=== PATIENT | male | born 1965 | race Asian ===

== ENCOUNTER 2022-12-30 09:30 | Emergency (ER) | payer BC ==
[~2022-12-30] VITALS: Ht 170.2 cm; Wt 61.7 kg
[2022-12-30 09:35] VITALS: BP 132/79
--- NOTE | 2022-12-30 10:05 | NUR ---
pt in room 4, nad, already seen by , sr on cm, o2 sat 98% ra, sr up times 2
[2022-12-30 10:07] LABS: BASOPHILS # (AUTO) 0.1 K/uL (0.00-0.22); EOSINOPHILS # (AUTO) 0.1 K/uL (0-0.4); HEMATOCRIT 41.8 % (36-52); HEMOGLOBIN 13.9 g/dL (12.0-18.0); LYMPHOCYTES # (AUTO) 2.4 K/uL (2.0-11.5); LYMPHOCYTES % (AUTO) 45.4 % (20.5-51.1); MEAN CORPUSCULAR HEMOGLOBIN 29 pg (27-31); MEAN CORPUSCULAR HGB CONC 33 g/dL (33-37); MEAN CORPUSCULAR VOLUME 86.3 fL (80-94); MONOCYTES # (AUTO) 0.4 K/uL (0.8-1.0); MONOCYTES % (AUTO) 7.8 % (1.7-9.3); NEUTROPHILS # (AUTO) 2.4 K/uL (1.8-7.7); NEUTROPHILS % (AUTO) 44.8 % (42.2-75.2); PLATELET COUNT (AUTO) 214 K/uL (140-450); RED BLOOD CELL COUNT(AUTO) 4.84 MIL/uL (4.20-6.10); WHITE BLOOD COUNT (AUTO) 5.3 K/uL (4.8-10.8)
[2022-12-30 10:20] LABS: ALBUMIN 4.2 g/dL (3.4-5.0); ANION GAP 13.2 (8-16); ASPARTATE AMINOTRANSFERASE 26 U/L (15-37); CARBON DIOXIDE 26.8 mmol/L (21-32); CHLORIDE 102 mmol/L (98-107); CREATININE 0.8 mg/dL (0.6-1.3); GFR ARICAN-AMERICAN 127 mL/min (>90); GLUCOSE 124 mg/dL (74-106); SODIUM SERUM 138 mmol/L (136-145); TOTAL BILIRUBIN 0.8 mg/dL (0.0-1.0); UREA NITROGEN, BLOOD 19 mg/dL (7-18)
[2022-12-30] MEDS ORDERED: ALUMINUM HYD/MAG/SIMETHICONE 30 ML UDC PO ONE (11:20)
[2022-12-30] MEDS ORDERED: ONDANSETRON 4 MG ODT PO ONE (11:20)
--- NOTE | 2022-12-30 12:07 | NUR ---
MEDICATED FOR NAUSEA EARLIER, BETTER AFTER ZOFRAN ODT AND MAALOX, SR ON CM, O2 SAT99 % RA, SR UP TIMES 2
[2022-12-30] MEDS ORDERED: ALUM355S59 PO ×2 (13:35→13:44)
[2022-12-30] MEDS ORDERED: ACET-10509 PO ×2 (13:35→13:44)
[2022-12-30] MEDS ORDERED: FAMO-90 PO ×2 (13:35→13:44)
[2022-12-30 13:47] VITALS: BP 123/72
--- NOTE | 2022-12-30 13:48 | NUR ---
Patient discharged with v/s stable. Written and verbal after care instructions given and explained. Patient verbalized understanding. Ambulatory with steady gait. All questions addressed prior to discharge. Advised to follow up with PMD.
== END 2022-12-30 13:48 | disposition home or self-care (01) ==
LOC: MED 09:30
DX: R07.89 Other chest pain (principal); R00.2 Palpitations
CPT/HCPCS: 36415; 71045; 80053; 83690; 84436; 84443; 84484; 85025; 93005; 99285; Q0162